=== PATIENT | female | born 1985 | race Caucasian/White ===

== ENCOUNTER → 2020-07-25 16:36 | Outpatient (CLI) | payer BC, SELFPAY ==
[2020-07-25 13:13] VITALS: BMI 22.1
== END ==
PROVIDERS: Referring Provider Nurse Practitioner Women's Health; Visit Provider Nurse Practitioner Women's Health
DX: N76.0 Acute vaginitis (principal)
CPT/HCPCS: 87070; 87205

== ENCOUNTER → 2020-08-02 18:08 | Outpatient (CLI) | payer BC, SELFPAY ==
[2020-08-02 15:38] VITALS: BMI 22.1
[2020-08-06 21:45] LABS: HPV APTIMA, High Risk Negative (Negative)
== END ==
PROVIDERS: Visit Provider Obstetrics & Gynecology
DX: Z12.4 Encounter for screening for malignant neoplasm of cervix (principal)
CPT/HCPCS: 87624; 88175; G0145

== ENCOUNTER → 2020-08-10 09:17 | Outpatient (CLI) | payer BC, SELFPAY ==
[2020-08-02 15:38] VITALS: BMI 22.1
--- NOTE | 2020-08-10 09:21 | BI_ITS ---
MAMMOGRAPHY - BILATERAL DIAGNOSTIC REASON FOR EXAM: Female, 35 years old. Palpable breast nodules. PERTINENT HISTORY: Non-contributory. TECHNIQUE: Digital bilateral breast kieran (3D mammographic acquisition) in the CC and MLO projections. 2-D mediolateral oblique (MLO) and craniocaudad (CC) views of both breasts were obtained. CAD: Full Field Digital Mammography with Computer Added Detection was performed. COMPARISON: Comparison is made with prior outside examination dated 06/05/2016. FINDINGS: Breast Composition: The breasts are extremely dense, which lowers the sensitivity of mammography. Multiple bilateral nodular densities seen in the upper lateral aspects of both breasts. The previously seen nodular densities in the left breast decreased in size. These most likely represent cysts. Correlation with ultrasound is recommended. No other significant abnormalities are identified. BI/DIAG MAMM W/CAD, BILAT IMPRESSION: Bilateral breast nodules as described. Correlation with ultrasound is recommended. ASSESSMENT CATEGORY: BIRADS Category 0: Incomplete. Need additional imaging evaluation. A letter regarding these results will be sent to the patient by the facility within 30 days. Approximately 10% of breast cancers are not detected by mammography. A normal mammogram should not delay biopsy of a clinically suspicious abnormality. Electronically Signed: Jose A Rankin MD at 11:07 EST , Service support ,
--- NOTE | 2020-08-10 09:21 | US_ITS ---
STUDY: ULTRASOUND BREAST - RIGHT REASON FOR EXAM: Female, 35 years old. Palpable lump in the right breast. TECHNIQUE: Axial and longitudinal images of the RIGHT breast were performed with a high resolution ultrasound transducer. # OF IMAGES: 96 COMPARISON: Comparison is made with prior mammogram done earlier this morning. FINDINGS: RIGHT Breast: The upper outer quadrant of the right breast was examined by ultrasound. Multiple cysts are seen. The largest cyst is at the 10 o''clock position of the breast at 8 cm from the nipple. This measures 2.2 cm x 2.1 cm x 1.5 cm. IMPRESSION: Multiple cysts in the upper-outer quadrant of the breast. ASSESSMENT CATEGORY: BIRADS Category 2: Benign. A letter regarding these results will be sent to the patient by the facility within 30 days. Electronically Signed: Jose A Rankin MD at 13:16 EST , Service support , STUDY: ULTRASOUND BREAST - LEFT REASON FOR EXAM: Female, 35 years old. Abnormal screening mammogram. TECHNIQUE: Axial and longitudinal images of the LEFT breast were performed with a high resolution ultrasound transducer. # OF IMAGES: 96 COMPARISON: Comparison is made with prior mammogram done earlier today. FINDINGS: LEFT Breast: Multiple cysts are seen in the upper outer quadrant of the left breast. The largest cyst measures 1.9 cm x 1.7 cm x 0.9 cm. This is at the 2 o''clock position of the breast 5 cm from nipple. There is a 1.1 cm x 0.8 cm x 0.5 cm hypoechoic solid nodule at the 1 o''clock position of the breast at 4 cm from the nipple. A biopsy is recommended. US/Breast Limited Unilateral IMPRESSION: Multiple cysts are seen in the upper outer quadrant of the breast. There is a 1.1 cm x 0.8 cm x 0.5 cm solid nodule at the 1 o''clock position of the breast at 4 cm from nipple. A biopsy is recommended. ASSESSMENT CATEGORY: BIRADS Category 4: Suspicious - Biopsy Should Be Considered. A letter regarding these results will be sent to the patient by the facility within 30 days. Electronically Signed: Jose A Rankin MD at 13:19 EST , Service support ,
== END ==
PROVIDERS: PCP Family Medicine; Referring Provider Obstetrics & Gynecology; Visit Provider Obstetrics & Gynecology
DX: N63.10 Unspecified lump in the right breast, unspecified quadrant (principal)
CPT/HCPCS: 76642; 77062; 77066; G0279

== ENCOUNTER 2020-08-22 18:44 | Observation (INO) | payer BC, SELFPAY ==
[2020-08-14 14:57] VITALS: BMI 21.4
[2020-08-22] VITALS (8 sets, daily range): BP systolic 101–125; BP diastolic 66–88; PULSE 67–114; RESP 16–18; TEMP 36.6–37.2; O2SAT 97–100; BMI 21.4; BMI 20.5; BMI 20.6
--- NOTE | 2020-08-22 | LES_PTH ---
PATIENT: SEBASTIAN BUTLER LOC: MS3 U#:[id number] AGE/SX: 35/F [place] [facility] [place]: Dr. Eugenio Molina MD : 1985 BED: 1 DIS: 08/23/2020 SPEC #: [id number] RECD: 08/22/20 15:00 STATUS: ELLA MALVIN #: [id number] ABRAHAM: 08/22/20 00:[address]: Eugenio Molina DEPT: SURGICAL PATHOLOGY RECD BY: Levon Perez ENTERED: 08/23/20 07:33 SP TYPE: Lesion OTHR DR: Dr. Jatinder Browne, DO Tissues: Skin of breast, NOS Procedures: Surgery Specimen Level IV HEADER OPERATION: Left breast biopsy PRE-OP DIAGNOSIS: Left breast lesion 1 o'clock, 4 cm from nipple TISSUE SUBMITTED: Left breast lesion MICROSCOPIC DIAGNOSIS Left breast lesion, 1 o'clock, 4 cm from nipple, core biopsy: Fibroadenoma with focal fibrocystic changes. Negative for atypia or malignancy. See comment. JOSE GUADALUPE:joseph 08/24/2020 COMMENT Numerous blood clots are also noted in the specimen. Correlation with clinical, radiologic findings and appropriate follow up are necessary. Please also make reference to additional specimen [id number], left breast, evacuation hematoma with diagnosis of fibroadenoma and fibrocystic changes. MICROSCOPIC DESCRIPTION Slides are reviewed. GROSS DESCRIPTION Received in fixative is one container labeled with the patient name and designated left breast. The specimen consists of multiple elongated fragments of lr-yellow fibroadipose tissue mixed with blood clot that in aggregate measure 3 x 2.5 x 0.3 cm. The entire specimen is submitted in one cassette. / JOSE GUADALUPE:joseph 08/23/20 TC:1 CPT: 66437
--- NOTE | 2020-08-22 | MASS_PTH ---
PATIENT: SEBASTIAN BUTLER LOC: MS3 U#:[id number] AGE/SX: 35/F ROOM: [facility] [place] RE08/22/[address]: Dr. Eugenio Molina MD : 1985 BED: 1 DIS: 08/23/2020 SPEC #: [id number] RECD: 08/23/20 07:32 STATUS: ELLA COOMBS #: [id number] ABRAHAM: 08/22/20 00:[address]: Eugenio Molina DEPT: SURGICAL PATHOLOGY RECD BY: Levon Perez ENTERED: 08/23/20 07:44 SP TYPE: Mass OTHR DR: Dr. Jatinder Browne, DO Tissues: Left breast, NOS Procedures: Surgery Specimen Level V HEADER OPERATION: Exploration of left breast, evacuation hematoma PRE-OP DIAGNOSIS: Left breast lump; hematoma of breast TISSUE SUBMITTED: Left breast mass MICROSCOPIC DIAGNOSIS Left breast mass, evacuation hematoma: Fibroadenoma (0.6 cm in greatest dimension). Focal fibrocystic changes. Focal area of hemorrhage, consistent with hematoma. Negative for atypia or malignancy. See comment. JOSE GUADALUPE:joseph 08/24/2020 COMMENT The fibroadenoma is focally present at the resection margin of the specimen. Please make reference to corresponding additional surgical specimen ([id number]) left breast lesion, 1 o'clock, 4 cm from nipple, core biopsy with diagnosis of fibroadenoma with focal fibrocystic changes. MICROSCOPIC DESCRIPTION Slides are reviewed. GROSS DESCRIPTION Received in fixative is one container labeled with the patient's name and designated left breast mass. The specimen consists of a piece of lr soft tissue measuring 2.5 x 2 x 1 cm. The specimen is not oriented. Sections do not reveal a well-defined mass lesion. The specimen is inked, serially sectioned and submitted entirely in one cassette. / JOSE GUADALUPE:joseph 08/23/20 TC:1 CPT: 39600
--- NOTE | 2020-08-22 13:37 | US_ITS ---
STUDY: ULTRASOUND BREAST - LEFT REASON FOR EXAM: Female, 35 years old. Ultrasound guided left breast biopsy. TECHNIQUE: Axial and longitudinal images of the LEFT breast were performed with a high resolution ultrasound transducer. # OF IMAGES: 25 COMPARISON: Comparison is made with prior mammogram dated 08/10/2020. FINDINGS: LEFT Breast: Under direct sonographic guidance, a decision perform core biopsies of the 1.1 cm x 0.8 cm x 0.5 cm hypoechoic nodule at the 1 o''clock position of the breast at 4 sinus and in the pelvis. US/US Breast Biopsy 1st Lesion IMPRESSION: Successful ultrasound-guided left breast biopsy. ASSESSMENT CATEGORY: BIRADS Category 2: Benign. A letter regarding these results will be sent to the patient by the facility within 30 days. Electronically Signed: Jose A Rankin MD at 15:09 EST , Service support ,
--- NOTE | 2020-08-22 14:19 | PCM.OPRPT ---
Problem List (1) Left breast lump Status: Acute Report of Operation Date of Procedure: 08/22/20 Pre-Operative Diagnosis: Left breast mass Post-Operative Diagnosis: Same Surgery/Procedure Performed:: Ultrasound-guided core needle biopsy of left breast mass with clip placement Description of Procedure: Patient was placed in supine position and the left breast was examined with ultrasound. The install and repair technician was able to identify the left breast mass. An area lateral to this was injected with local anesthesia and a small kaushik was made with a scalpel. The mammotome biopsy needle was placed inferior to the mass and several biopsies were performed. There was a small hematoma that began to form. A clip was placed into the mass and then the hematoma was expressed and pressure was held over the biopsy area. A Steri-Strip and bandage were placed over the incision. Pressure was continue to be held and there appeared to be no new formation of hematoma after pressure was released. Patient was advised to call me if there is any further hematoma formation. Otherwise patient tolerated the procedure well and was sent home in stable condition.
--- NOTE | 2020-08-22 17:08 | HP.PCM_ITS ---
Problem List (1) Left breast lump Status: Acute (2) Hematoma of breast following procedure Status: Acute (3) Hematoma of breast Status: Acute History of Present Illness Date of Admission: 08/22/20 The patient is a 35 year old F who had left breast biopsy today under ultrasound. Following the ultrasound the patient went home and then developed a large hematoma in the left breast. She is very painful and reports that it is growing. Past Medical History Medical History: Medical History (Last Reviewed 08/14/20 @ 14:57 by Estella Goss) Abnormal mammogram of left breast R92.8 Cyst of neck Left breast mass N63.20 Allergies No Known Allergies Allergy (Verified 08/14/20 14:59) Home Medications: Ambulatory Orders Medication Instructions Recorded multivitamin with minerals 1 tab PO DAILY 07/25/20 citalopram 20 mg tablet 20 mg PO DAILY #30 tab 08/02/20 norgestimate 0.25 mg-ethinyl 1 tab PO QDAY #84 tab 08/02/20 estradiol 35 mcg tablet Surgical History: Surgical History (Last Reviewed 08/14/20 @ 14:57 by Estella Goss) delivery delivered O82 Smoking Status: Never smoker - *Family History Maternal History Items: No pertinent history Review of Systems Constitutional: Denies: Anorexia, Fever Eyes: Denies: Blurred vision HEENT: Denies: Difficulty Swallowing Cardiovascular: Denies: Chest Pain Respiratory: Denies: Cough Gastrointestinal: Denies: Abdominal Pain, Nausea, Vomiting Genitourinary: Denies: Frequency Gynecological: Reports: - - Left breast pain and swelling following needle biopsy Musculoskeletal: Denies: Joint Tenderness Neurological: Denies: Balance problems Hematologic/ Lymphatic: Denies: Anemia VTE Information - Inpt Only VTE Present on Admission: No VTE Mechan Device Prophylaxis: SCD's Patient Problems: Active and Suspected Problems (Last Reviewed 08/14/20 @ 14:57 by Estella Goss) Left breast lump (Acute) - Physical Exam Vitals/I&O's: Body Mass Index (BMI) 21.4 General: Alert, Oriented x3 Neck: No JVD Lungs: Normal air movement Cardiovascular: Regular rate, Regular Rhythm Abdomen: Soft, Non Tender, Non-Distended Musculoskeletal: - - Enlarged left breast with firmness Assessment/Plan All Active Problems (Last Reviewed 08/14/20 @ 14:57 by Estella Goss) Left breast lump (Acute) Hematoma of breast following procedure (Acute) Hematoma of breast (Acute) Breast lump on right side at 10 o'clock position (Acute) Adjustment disorder (Acute) 35-year-old female with expanding hematoma following core needle biopsy of the left breast 1. The patient has an expanding hematoma of the left breast with tenderness. I recommended taking the patient to the operating room for evacuation of this hematoma. If the BI-RADS 4 lesion is visible I will remove it at the same time and send it for pathology. I discussed this procedure with her in detail. I discussed the risks of further bleeding, infection, positive margins if this is cancerous. The patient understands all the risks and is willing to proceed. Patient will be admitted for observation after surgery. Eugenio Molina MD Pager: [facility] [address] [place] [address], [address] [place] [address] Office:
[2020-08-22] MEDS: Lactated Ringers 1,000 ML 100 ML IV (17:25)
[2020-08-22] MEDS: Bupiv/Epi 0.25% 30 ML Vial (17:26)
[2020-08-22] MEDS: Cefazolin 2 GM in 0.9% Normal Saline 100 ML IV (17:50)
--- NOTE | 2020-08-22 18:41 | PCM.OPRPT ---
Problem List (1) Left breast lump Status: Acute (2) Hematoma of breast following procedure Status: Acute (3) Hematoma of breast Status: Acute Report of Operation Date of Procedure: 08/22/20 Pre-Operative Diagnosis: Left breast hematoma following procedure Post-Operative Diagnosis: Same Surgery/Procedure Performed:: Evacuation of left breast hematoma with removal of left breast mass Specimen's removed: Left breast mass Description of Procedure: Patient was brought back to the operating room and general anesthesia was used. The left breast was prepped and draped in usual sterile fashion. An incision was made in a curvilinear fashion lateral to the nipple. This was deepened to the hematoma cavity. An artery which was bleeding was encountered. It was clipped on both sides. The cavity was irrigated and suctioned dry and all the hematoma that was able to be expressed was removed. The cavity was inspected and there appeared to be a firm area medial to this which was removed using electrocautery. This was sent for pathology and may contain the mass that was biopsied. Local anesthetic was injected to the incision in the skin. After the cavity was irrigated once more Surgicel powder was placed into the cavity and it was closed with interrupted 3-0 Vicryl sutures as well as a running 4-0 Monocryl suture. Bandage was applied and an Sachin wrap was placed as a pressure dressing around the chest. Patient was then awoken and taken to PACU in stable condition. - Admit VTE Documentation VTE Mechan Device Prophylaxis: SCD's
[2020-08-22] MEDS: 0.9% Normal Saline 1,000 ML 60 ML IV (19:33)
[2020-08-22] MEDS: Morphine 2 MG/ML Syringe IV ×2 (20:11→23:50)
[2020-08-22] MEDS: 0.9% Saline Lock 10 ML Syringe IV (23:50)
[2020-08-23] MEDS: Morphine 2 MG/ML Syringe IV ×2 (04:04→07:23)
[2020-08-23] MEDS: 0.9% Saline Lock 10 ML Syringe IV ×2 (04:05→07:24)
[2020-08-23 04:09] VITALS: BP 103/65; PULSE 68; RESP 18; TEMP 36.9; O2SAT 97
--- NOTE | 2020-08-23 07:12 | PCM.DC.BS ---
Discharge Diet: No Restrictions Discharge Activity: May Not Drive - for 2-3 days or while taking narcotic pain meds., May Shower Lifting Restrictions: 10 pounds for 1 week. Call your doctor if your incision/area has: Sudden Increased Bleeding, Increased Pain/ Swelling, Increased Redness, Foul Smelling Discharge, Swelling at the incision site Call your doctor if you observe: Fever of 101 or Higher Suture Line Care: Avoid Pulling/Pushing, Avoid Pinching/Bending Additional Dressing/Incision Instructions:: Change wrapping and dressing as needed. Keep carter wrap snug around chest. Allergies/Adverse Reactions: Allergies No Known Allergies Allergy (Verified 08/14/20 14:59) Medications to take at Discharge multivitamin with minerals 1 tab PO DAILY 07/25/20 citalopram 20 mg tablet 20 mg PO DAILY #30 tab 08/02/20 norgestimate 0.25 mg-ethinyl estradiol 35 mcg tablet 1 tab PO QDAY #84 tab 08/02/20 Amox/Clavulanate Tablet [Augmentin Tablet] 875 mg PO BID 5 Days #10 tab 08/23/20 Oxycodone HCl/Acetaminophen [Percocet 5-325 mg Tablet] 1 - 2 tab PO Q6H PRN PRN 5 Days #30 tablet 08/23/20 The following prescriptions were given: Amox/Clavulanate Tablet [Augmentin Tablet] 875 mg PO BID 5 Days #10 tab Transmission Status: Pending to [facility] Oxycodone HCl/Acetaminophen [Percocet 5-325 mg Tablet] 1 - 2 tab PO Q6H PRN PRN 5 Days #30 tablet PRN Reason: Pain Score 4-10/10 Transmission Status: Sent to [facility] Primary Care Physician: Jatinder Browne DO [Primary Care Provider] - Please Follow Up With: Eugenio Molina MD When: Follow-up on Thursday morning
--- NOTE | 2020-08-23 08:33 | PCM.PN.SRG ---
Patient Problems: Active and Suspected Problems (Last Reviewed 08/14/20 @ 14:57 by Estella Goss) Left breast lump (Acute) Hematoma of breast following procedure (Acute) Hematoma of breast (Acute) Subjective: Patient is doing well this morning reports much less pain. Her pain is well controlled on meds. - Physical Exam Vitals/I&O's: Vital Signs Temp Pulse Resp BP Pulse Ox 98.4 F 68 18 103/65 97 08/23/20 04:09 08/23/20 04:09 08/23/20 04:09 08/23/20 04:09 08/23/20 04:09 Oxygen Delivery Method Room Air Weight: 120 lb Body Mass Index (BMI) 20.5 Intake and Output for Last 24 Hours 08/21/20 08/22/20 08/23/20 23:59 23:59 23:59 Intake Total 1110 / 1530 740 / 740 Balance 1110 / 1530 740 / 740 General: Alert, Oriented x3 Neck: No JVD Lungs: Normal air movement Abdomen: Soft, Non Tender, Non-Distended Musculoskeletal: - - The patient's left breast appears much softer and less firm than yesterday. There is some old blood draining from the incision but no bright red bleeding or firmness. Current Medications Acetaminophen (Acetaminophen 325 Mg Tablet) 650 mg PO Q4H PRN PRN PRN Reason: PAIN 1-10 / FEVER Amoxicillin/Clavulanate Potassium (Amox/Clavulanate 875 Mg Tablet) 875 mg PO BIDCM [facility] Citalopram Hydrobromide (Citalopram 20 Mg Tablet) 20 mg PO DAILY [facility] Sodium Chloride () 1,000 mls @ 60 mls/hr IV .[id number] [facility] Last Admin: 08/22/20 19:33 Dose: 60 mls/hr Documented by: Morphine Sulfate (Morphine 2 Mg/Ml Syringe) 2 - 4 mg IV Q2H PRN PRN PRN Reason: Pain Score 4-10 Last Admin: 08/23/20 07:23 Dose: 2 mg Documented by: Morphine Sulfate (Morphine 4 Mg/Ml Syringe) 2 - 4 mg IV Q2H PRN PRN PRN Reason: Pain Score 4-10 Ondansetron HCl (Ondansetron 4 Mg/2 Ml Vial) 4 mg IV Q6H PRN PRN PRN Reason: NAUSEA Oxycodone HCl (Oxycodone 5 Mg Tablet) 5 - 10 mg PO Q4H PRN PRN PRN Reason: Pain Score 4-10 Sodium Chloride (0.9% Saline Lock 10 Ml Syringe) 10 - 40 ml IV UD PRN PRN Reason: SALINE FLUSH Last Admin: 08/23/20 07:24 Dose: 10 ml Documented by: Medical Necessity - Tobacco Use Smoking Status: Former smoker Tobacco Use: Cigarettes Assessment/Plan All Active Problems (Last Reviewed 08/14/20 @ 14:57 by Estella Goss) Left breast lump (Acute) Hematoma of breast following procedure (Acute) Hematoma of breast (Acute) Breast lump on right side at 10 o'clock position (Acute) Adjustment disorder (Acute) 35-year-old female status post evacuation of hematoma from left breast biopsy 1. Patient is doing much better this morning and her breast appears softer. I change the dressing and there was some old blood that was draining from the incision but no new bleeding. The breast is mildly ecchymotic. The patient was rewrapped in an Sachin bandage and given instructions. I did start her on prophylactic antibiotics due to the hematoma and I will discharge her home with pain medication and she will follow-up on Thursday. Eugenio Molina MD Pager: [facility] [address] [place] [address], [address] [place] [phone] Office:
[2020-08-23 08:50] VITALS: BP 107/51; PULSE 68; RESP 14; TEMP 36.8; O2SAT 98
[2020-08-23] MEDS: Amox/Clavulanate 875 MG Tablet PO (09:07)
[2020-08-23] MEDS: Citalopram 20 MG Tablet PO (09:07)
[2020-08-23 09:59] VITALS: PULSE 68; RESP 14; O2SAT 98
[2020-08-23] MEDS: oxyCODONE 5 MG Tablet PO (10:22)
[2020-08-23] MEDS: Acetaminophen 325 MG Tablet 650 MG PO (10:23)
--- NOTE | 2020-08-23 11:55 | PHA.DC.MC ---
Pharmacy Service has performed discharge medication reconciliation and counseling for this patient. The patient was counseled on the following discharge medications and changes in medications for homegoing were reviewed. 1. AUGMENTIN --> REVIEWED INTERACTION W/ CONTROL. COUNSELLED ON ALTERNATIVE CONTRACEPTIVE METHODS WHILE ON ABX AND FOR 1 WEEK AFTER COMPLETION OF AUGMENTIN. 2. PERCOCET The Reason for Use, instructions for use, and potential side effects were reviewed for all new medications. The patient's questions regarding all of their medications were answered. The patient was able to verbally demonstrate an understanding of their discharge medications. Home Medications multivitamin with minerals 1 tab PO DAILY 07/25/20 citalopram 20 mg tablet 20 mg PO DAILY #30 tab 08/02/20 norgestimate 0.25 mg-ethinyl estradiol 35 mcg tablet 1 tab PO QDAY #84 tab 08/02/20 Amox/Clavulanate Tablet [Augmentin Tablet] 875 mg PO BID 5 Days #10 tab 08/23/20 Oxycodone HCl/Acetaminophen [Percocet 5-325 mg Tablet] 1 - 2 tab PO Q6H PRN PRN 5 Days #30 tab 08/23/20
[2020-08-23 12:40] VITALS: BP 108/73; PULSE 66; RESP 16; TEMP 36.8; O2SAT 98
--- NOTE | 2020-08-23 17:17 | NURSING ---
Late entry: Nursing documentation reviewed.
== END 2020-08-23 13:15 | disposition home or self-care (01) ==
LOC: MS3 08-23 07:09
PROVIDERS: Admitting Provider Surgery; PCP Family Medicine; Referring Provider Surgery; Visit Provider Surgery
PROC: (CPT 10140; principal; 2020-08-22 17:00)
DX: D24.2 Benign neoplasm of left breast (principal); N64.89 Other specified disorders of breast; R92.8 Other abnormal and inconclusive findings on diagnostic imaging of breast; F43.20 Adjustment disorder, unspecified; Z79.899 Other long term (current) drug therapy; Z87.891 Personal history of nicotine dependence
CPT/HCPCS: 00400; 10140; 19120; 19083; 88305; 88307; 96374; 96376; 99218; J7030; J7120; A4216; G0378; G0379; J2405

== ENCOUNTER 2020-08-30 10:44 | Day surgery (SDC) | payer BC, SELFPAY ==
[2020-08-22 20:38] VITALS: BMI 20.5
[2020-08-30] VITALS (9 sets, daily range): BP systolic 94–109; BP diastolic 59–69; PULSE 66–74; RESP 14–16; TEMP 36–36.8; O2SAT 98–99; BMI 21.2
[2020-08-30 11:14] LABS: Internal QC Validated? YES +Cl - CLEAR BKGD; Pregnancy, Urine Negative Negative
[2020-08-30] MEDS: Lactated Ringers 1,000 ML 100 ML IV (11:30)
--- NOTE | 2020-08-30 11:48 | HP.PCM_ITS ---
Problem List (1) Hematoma of breast following procedure Status: Acute History of Present Illness Date of Admission: 08/30/20 The patient is a 35 year old F who had evacuation of breast hematoma last Thursday. The patient reports that she was doing well over the weekend and it reaccumulated on Thursday. She was seen in the office on Thursday and again on Thursday and there is no improvement. She still says she is in significant discomfort and would like this removed. Past Medical History Past Medical History (Chronic Problems): Chronic Problems (Last Updated 08/29/20 @ 14:[address] Eugenio Molina MD) Left breast lump (Chronic) Medical History: Medical History (Last Updated 08/29/20 @ 14:[address] Eugenio Molina MD) Left breast lump (Chronic) N63.20 Abnormal mammogram of left breast R92.8 Cyst of neck Left breast mass N63.20 Allergies No Known Allergies Allergy (Verified 08/29/20 16:12) Home Medications: Ambulatory Orders Medication Instructions Recorded multivitamin with minerals 1 tab PO DAILY 07/25/20 citalopram 20 mg tablet 20 mg PO DAILY #30 tab 08/02/20 norgestimate 0.25 mg-ethinyl 1 tab PO QDAY #84 tab 08/02/20 estradiol 35 mcg tablet fluconazole 150 mg tablet 150 mg PO .COMPLEX #2 tab 08/28/20 Oxycodone HCl/Acetaminophen 1 ea PO PRN PRN 08/29/20 [Oxycodone-Acetaminophen 5-325] Surgical History: Surgical History (Last Updated 08/29/20 @ 13:55 by Mariela Membreno) History of evacuation of hematoma Onset Date: ~07/2020 Z98.890 History of left breast biopsy Onset Date: ~07/2020 Z98.890 delivery delivered O82 Smoking Status: Current every day smoker Tobacco Use: Cigarettes - *Family History Maternal History Items: No pertinent history Review of Systems Constitutional: Denies: Anorexia, Fever HEENT: Denies: Difficulty Swallowing Cardiovascular: Reports: - - Left breast pain Respiratory: Denies: Cough Gastrointestinal: Denies: Abdominal Pain, Hematochezia, Nausea, Melena Genitourinary: Denies: Dysuria Musculoskeletal: Denies: Joint Tenderness Skin: Denies: Jaundice VTE Information - Inpt Only VTE Present on Admission: No VTE Mechan Device Prophylaxis: SCD's - Physical Exam Vitals/I&O's: Vital Signs Temp Pulse Resp BP Pulse Ox 97.8 F 66 14 103/63 98 08/30/20 11:10 08/30/20 11:10 08/30/20 11:10 08/30/20 11:10 08/30/20 11:10 Oxygen Delivery Method Room Air Weight: 123 lb 7.342 oz Body Mass Index (BMI) 21.2 General: Alert, Oriented x3 Neck: Supple, No JVD Lungs: Normal air movement Cardiovascular: Regular rate, Regular Rhythm Abdomen: Soft, Non Tender, Non-Distended Laboratory Results 08/30/20 11:05: Urine Test Negative Current Medications Lactated Ringer's () 1,000 mls @ 100 mls/hr IV .Q10H RAE Last Admin: 08/30/20 11:30 Dose: 100 mls/hr Documented by: Assessment/Plan All Active Problems (Last Updated 08/29/20 @ 14:[address] Eugenio Molina MD) Hematoma of breast following procedure (Acute) Adjustment disorder (Acute) Breast lump on right side at 10 o'clock position (Resolved) The patient has ongoing hematoma in the left breast. It is warm to the touch but I am unable to assess for erythema. It is tender and swollen. I believe she has reaccumulation of hematoma in the left breast. I did offer the patient continued observation versus evacuation of hematoma the patient would like evacuated she is very uncomfortable. I will take the patient tomorrow for OR evacuation of hematoma. I discussed the risks of bleeding and infection and the patient understands and is willing to proceed. Eugenio Molina MD Pager: [facility] [address] [place] [address], [address] [place] [address] Office:
[2020-08-30] MEDS: Cefazolin 2 GM in 0.9% Normal Saline 100 ML IV (13:05)
[2020-08-30] MEDS: Lidocaine 1% /Epi 1:100 (20ml) 20 ML Vial (13:28)
--- NOTE | 2020-08-30 13:38 | PCM.OPRPT ---
Problem List (1) Hematoma of breast following procedure Status: Acute Report of Operation Date of Procedure: 08/30/20 Pre-Operative Diagnosis: Postoperative hematoma Post-Operative Diagnosis: Postoperative seroma with inflammation Surgery/Procedure Performed:: Postoperative seroma evacuation Description of Procedure: Patient was brought back to the operating room and MAC anesthesia was induced. The left breast was prepped and draped in usual sterile fashion. The prior incision was injected with local anesthetic. The prior incision was excised sharply. The seroma cavity was entered and the seroma was suctioned. The fluid was clear and there was no ongoing bleeding. The cavity appeared dry with no oozing or hematoma. The breast was explored and there were no other hematoma pockets. There was inflamed breast tissue laterally and inferiorly but there was no sign of ongoing bleeding or fluid collection. The incision was injected once more with local anesthetic and closed with interrupted 3-0 Vicryl sutures as well as running 4-0 Monocryl suture. It was left loosely sutured and allowed to drain if needed. - Admit VTE Documentation VTE Mechan Device Prophylaxis: SCD's
--- NOTE | 2020-08-30 13:42 | DCINST_ITS ---
Discharge Diet: No Restrictions Discharge Activity: May Not Drive - while on narcotic pain medications, May Shower May shower in (days): 1 Lifting Restrictions: 10 pounds for 1 week. Call your doctor if your incision/area has: Continuous Slow Oozing, Sudden Incr eased Bleeding, Increased Pain/ Swelling, Increased Redness, Foul Smelling Discharge, Swelling at the incision site Call your doctor if you observe: Fever of 101 or Higher Suture Line Care: Avoid Pulling/Pushing, Avoid Pinching/Bending Remove Dressing in (days):: 1 - Remove bulky dressing tomorrow. May leave any opsite dressing for 3-4 days. Keep dressing in place until your follow-up appointment. Cleanse incision/area with: Soap & Water Additional Dressing/Incision Instructions:: Wear a tight supportive athletic bra. Allergies/Adverse Reactions: Allergies No Known Allergies Allergy (Verified 08/29/20 16:12) Medications to take at Discharge multivitamin with minerals 1 tab PO DAILY 07/25/20 citalopram 20 mg tablet 20 mg PO DAILY #30 tab 08/02/20 norgestimate 0.25 mg-ethinyl estradiol 35 mcg tablet 1 tab PO QDAY #84 tab 08/02/20 fluconazole 150 mg tablet 150 mg PO .COMPLEX #2 tab 08/28/20 Oxycodone HCl/Acetaminophen [Oxycodone-Acetaminophen 5-325] 1 ea PO PRN PRN 08/29/20 Oxycodone HCl/Acetaminophen [Percocet 5-325 mg Tablet] 1 - 2 tab PO Q6H PRN PRN 5 Days #40 tablet 08/30/20 The following prescriptions were given: Oxycodone HCl/Acetaminophen [Percocet 5-325 mg Tablet] 1 - 2 tab PO Q6H PRN PRN 5 Days #40 tablet PRN Reason: Pain Score 4-10/10 Transmission Status: Sent to [facility] Primary Care Physician: Jatinder Browne DO [Primary Care Provider] - Please Follow Up With: Eugenio Molina MD When: Please call to schedule 1 week follow up appointment. [phone]
== END 2020-08-30 15:18 | disposition home or self-care (01) ==
LOC: SDC 10:46 → AC 10:46
PROVIDERS: Anesthesiology; PCP Family Medicine; Referring Provider Surgery; Visit Provider Surgery
PROC: (CPT 21501; principal; 2020-08-30 12:45)
DX: M96.843 Postprocedural seroma of a musculoskeletal structure following other procedure (principal); Y83.8 Other surgical procedures as the cause of abnormal reaction of the patient, or of later complication, without mention of misadventure at the time of the procedure; F17.210 Nicotine dependence, cigarettes, uncomplicated; J45.909 Unspecified asthma, uncomplicated; Z79.899 Other long term (current) drug therapy; F43.20 Adjustment disorder, unspecified; F41.9 Anxiety disorder, unspecified; F32.9 Major depressive disorder, single episode, unspecified
CPT/HCPCS: 21501; 81025; J7120

== ENCOUNTER → 2020-11-09 10:53 | Outpatient (CLI) | payer BC, SELFPAY ==
[2020-10-31 13:58] VITALS: BMI 21.2
--- NOTE | 2020-11-09 10:54 | US_ITS ---
STUDY: ULTRASOUND BREAST - RIGHT REASON FOR EXAM: Female, 35 years old. Palpable lump in the right breast. TECHNIQUE: Axial and longitudinal images of the RIGHT breast were performed with a high resolution ultrasound transducer. # OF IMAGES: 20 COMPARISON: Comparison is made with prior mammogram dated 08/10/2020 and prior sonogram of the right breast dated 08/10/2020. FINDINGS: RIGHT Breast: Multiple cysts of the right breast were visualized. The largest cyst measures 2.4 cm x 2 cm x 1.5 cm. This is at the 10 o''clock position of the breast at 8 cm from nipple. US/Breast Limited Unilateral IMPRESSION: The palpable abnormality corresponds to a dominant 2.4 cm x 2 cm x 1.5 cm cyst at the 10 o''clock position of the breast at 8 cm from the nipple. ASSESSMENT CATEGORY: BIRADS Category 2: Benign. A letter regarding these results will be sent to the patient by the facility within 30 days. Electronically Signed: Jose A Rankin MD at 12:42 EDT , Service support ,
== END ==
PROVIDERS: PCP Family Medicine; Referring Provider Nurse Practitioner Women's Health; Visit Provider Nurse Practitioner Women's Health
DX: N63.10 Unspecified lump in the right breast, unspecified quadrant (principal)
CPT/HCPCS: 76642

== ENCOUNTER → 2021-02-27 10:50 | Outpatient (CLI) | payer BC, SELFPAY ==
--- NOTE | 2021-02-27 10:52 | US_ITS ---
STUDY: ULTRASOUND BREAST - LEFT REASON FOR EXAM: Female, 35 years old. Follow-up biopsy TECHNIQUE: Axial and longitudinal images of the LEFT breast were performed with a high resolution ultrasound transducer. # OF IMAGES: 18 COMPARISON: 08/22/2020 FINDINGS: LEFT Breast: Heterogeneous background echotexture. At 1 o''clock, 4 cm from nipple, no residual mass is identified which was biopsied earlier.: US/Breast Limited Unilateral IMPRESSION: No residual recurrent biopsied mass. ASSESSMENT CATEGORY: BIRADS Category 1: Negative. A letter regarding these results will be sent to the patient by the facility within 30 days. Electronically Signed: Evan Neumann MD at 11:36 EDT Tel , Service support ,
== END ==
PROVIDERS: PCP Family Medicine; Visit Provider Surgery
DX: N63.20 Unspecified lump in the left breast, unspecified quadrant (principal)
CPT/HCPCS: 76642

== ENCOUNTER → 2022-05-27 | Outpatient (CLI) | payer OTHER, SELFPAY ==
[2022-05-29 22:06] LABS: Chlamydia By Nucleic Acid AMP Negative (Negative)
[2022-05-29 22:25] LABS: Gonococcus By Nucleic Acid AMP Negative (Negative)
== END | disposition home or self-care (01) ==
LOC: LABSPEC 16:59
PROVIDERS: PCP Family Medicine; Visit Provider Nurse Practitioner Women's Health
DX: N89.8 Other specified noninflammatory disorders of vagina (principal)
CPT/HCPCS: 87070; 87077; 87205; 87491; 87591

== ENCOUNTER → 2024-09-02 | Outpatient (CLI) | payer OTHER, SELFPAY ==
--- NOTE | 2024-09-02 11:00 | BI_ITS ---
PROCEDURE: SCRN MAMM (CAD)W/MARIO ALBERTO BILAT REASON FOR EXAM: F, Age 39 y/o, history of prior left excisional breast biopsy. History of bilateral breast cysts. TECHNIQUE: Bilateral screening digital breast tomosynthesis with 2D and 3D images. Computer aided detection. COMPARISON: Prior exam(s) dating back to outside examination dated August 10, 2020.. FINDINGS: The breasts are heterogeneously dense which may obscure small masses. The patient is status post lumpectomy in the upper lateral aspect of the left breast. There is evidence of well-defined nodular densities in both upper outer quadrants of the breasts suggestive of known cysts. Correlation with ultrasound recommended. BI/SCRN MAMM (CAD)W/MARIO ALBERTO BILAT IMPRESSION: BI-RADS 0: INCOMPLETE - NEED ADDITIONAL IMAGING EVALUATION. Follow-up code: Sonographic correlation recommended of both breasts. The patient will be notified of the results by letter. Reading Location: [id number]
== END | disposition home or self-care (01) ==
LOC: OPBI 11:04
PROVIDERS: PCP Family Medicine; Referring Provider Obstetrics & Gynecology; Visit Provider Obstetrics & Gynecology
DX: Z12.31 Encounter for screening mammogram for malignant neoplasm of breast (principal)
CPT/HCPCS: 77063; 77067

== ENCOUNTER → 2024-09-06 | Outpatient (CLI) | payer OTHER, SELFPAY ==
--- NOTE | 2024-09-06 12:49 | US_ITS ---
PROCEDURE: BREAST LIMITED UNILATERAL REASON FOR EXAM: ABNORMAL MAMMOGRAM 39-year-old female presents for follow-up of the bilateral breast findings seen on the screening mammogram of 09/02/2024. No family history of breast cancer. COMPARISON: Mammogram 09/02/2024 and ultrasound 02/27/2021 TECHNIQUE: Targeted bilateral breast ultrasound. FINDINGS: RIGHT: Ultrasound targeted to the upper-outer at the right breast. There are numerous cysts in the upper-outer right quadrant, the special service representative cyst is at 9 o'clock 6 cm from the nipple measuring 2.3 x 2.1 x 1.4 cm. Otherwise, there are no suspicious sonographic findings. LEFT: Ultrasound targeted to the upper-outer at the left breast. There are numerous cyst in the upper-outer left quadrant, the special service representative cyst is at 3 o'clock 9 cm from the nipple measuring 1.4 x 1.1 x 0.7 cm. There is another cyst at 2 o'clock 6 cm from the nipple measuring 1.1 x 1.1 x 0.7 cm. Otherwise, there are no suspicious sonographic findings. US/Breast Limited Unilateral IMPRESSION: Multiple bilateral breast cysts are benign. There is no evidence of malignancy. BI-RADS 2: BENIGN. RECOMMEND ANNUAL MAMMOGRAPHIC SCREENING. Reading Location: [id number]
--- NOTE | 2024-09-06 12:49 | US_ITS ---
PROCEDURE: BREAST LIMITED UNILATERAL REASON FOR EXAM: ABNORMAL MAMMOGRAM 39-year-old female presents for follow-up of the bilateral breast findings seen on the screening mammogram of 09/02/2024. No family history of breast cancer. COMPARISON: Mammogram 09/02/2024 and ultrasound 02/27/2021 TECHNIQUE: Targeted bilateral breast ultrasound. FINDINGS: RIGHT: Ultrasound targeted to the upper-outer at the right breast. There are numerous cysts in the upper-outer right quadrant, the telephone services sales representative cyst is at 9 o'clock 6 cm from the nipple measuring 2.3 x 2.1 x 1.4 cm. Otherwise, there are no suspicious sonographic findings. LEFT: Ultrasound targeted to the upper-outer at the left breast. There are numerous cyst in the upper-outer left quadrant, the telephone services sales representative cyst is at 3 o'clock 9 cm from the nipple measuring 1.4 x 1.1 x 0.7 cm. There is another cyst at 2 o'clock 6 cm from the nipple measuring 1.1 x 1.1 x 0.7 cm. Otherwise, there are no suspicious sonographic findings. US/Breast Limited Unilateral IMPRESSION: Multiple bilateral breast cysts are benign. There is no evidence of malignancy. BI-RADS 2: BENIGN. RECOMMEND ANNUAL MAMMOGRAPHIC SCREENING. Reading Location: [id number]
== END | disposition home or self-care (01) ==
PROVIDERS: PCP Family Medicine; Referring Provider Obstetrics & Gynecology; Visit Provider Obstetrics & Gynecology
DX: R92.8 Other abnormal and inconclusive findings on diagnostic imaging of breast (principal); N64.4 Mastodynia
CPT/HCPCS: 76642

== ENCOUNTER → 2024-12-20 | Outpatient (CLI) | payer OTHER, SELFPAY ==
--- NOTE | 2024-12-20 18:00 | US_ITS ---
PROCEDURE: PELVIC W/ TRANSVAGINAL REASON FOR EXAM: AUB Right-sided pelvic pain. TECHNIQUE: PELVIC W/ TRANSVAGINAL COMPARISON: None FINDINGS: LMP: November 26, 2024. Measurements: Uterus: 10.8 cm x 4.5 cm x 4.1 cm with a volume of 104.6 mL Endometrial Thickness: 7 mm. It is hyperechoic. Right Ovary: 5.4 cm x 3.6 cm x 2.8 cm with a volume of 33.2 mL. Left Ovary: 2.4 cm x 1.5 cm x 1.4 cm with a volume of 5.07 mL. TRANSABDOMINAL: Uterus: Normal size, myometrial echotexture, and contour. Endometrium: Unremarkable. Right ovary: There is a 3.3 cm x 3 cm x 2.8 cm cyst in the right ovary. There is also evidence of a 1.8 cm 2.2 cm x 1.9 cm solid nodule. This may represent possible dermoid. Left ovary: Normal size and echotexture. Other: No large pelvic mass identified. Transvaginal sonography was performed as transabdominal imaging did not explain the patient's presenting symptoms. TRANSVAGINAL: Uterus: Anteverted. Endometrium: Normal echotexture. Right ovary: 3.3 cm x 3 cm 2.8 cm right ovarian cyst. There is also evidence of a 1.8 cm 2.2 cm 1.9 cm hypoechoic nodule. Follow-up recommended. Left ovary: Normal size and echotexture. Other adnexal findings: None. Cul-de-sac: No free intraperitoneal fluid identified. Tenderness: No tenderness US/Pelvic w/ Transvaginal IMPRESSION: Right ovarian cyst as well as a small hypoechoic solid nodule. Follow-up recom mended. Reading Location: [id number]
== END | disposition home or self-care (01) ==
LOC: OPUS 17:59
PROVIDERS: PCP Family Medicine; Referring Provider Obstetrics & Gynecology; Visit Provider Obstetrics & Gynecology
DX: N93.9 Abnormal uterine and vaginal bleeding, unspecified (principal)
CPT/HCPCS: 76830; 76856

== ENCOUNTER → 2025-02-16 | Outpatient (CLI) | payer OTHER, SELFPAY ==
--- NOTE | 2025-02-16 12:48 | US_ITS ---
PROCEDURE: PELVIC W/ TRANSVAGINAL REASON FOR EXAM: OVARIAN CYST TECHNIQUE: PELVIC W/ TRANSVAGINAL COMPARISON: Prior study dated December 20, 2024. FINDINGS: Measurements: Uterus: 10.2 cm x 4.8 cm x 4.7 cm with a volume of 120.46 mL Endometrial Thickness: 3.9 mm Right Ovary: 3 cm x 5.4 cm x 3.5 cm with a volume of 29.49 mL. Left Ovary: 3.2 cm x 1.4 cm x 1.4 cm with a volume of 3.2 cm mL. TRANSABDOMINAL: Uterus: Normal size, myometrial echotexture, and contour. Endometrium: Unremarkable. Right ovary: There is a 2.6 cm x 2.8 cm x 2.2 cm right ovarian cyst. Once again, there is a 1.7 cm x 1.6 cm 1.8 cm hyperechoic area most likely representing fat. This is unchanged. Left ovary: Normal size and echotexture. Other: No large pelvic mass identified. Transvaginal sonography was performed to better visualize the endometrium. TRANSVAGINAL: Uterus: Anteverted. Normal contour and myometrial echotexture. Endometrium: Homogeneously thickened. Right ovary: 2.6 cm x 2.8 cm 2.2 cm right ovarian cyst. Stable 1.7 cm x 1.6 cm 1.8 cm hyperechoic area. This is unchanged. Left ovary: Normal size and echotexture. Other adnexal findings: None. Cul-de-sac: No free intraperitoneal fluid identified. Tenderness: No tenderness US/Pelvic w/ Transvaginal IMPRESSION: Stable examination. Reading Location: [id number]
== END | disposition home or self-care (01) ==
PROVIDERS: PCP Family Medicine; Referring Provider Obstetrics & Gynecology; Visit Provider Obstetrics & Gynecology
DX: N83.201 Unspecified ovarian cyst, right side (principal)
CPT/HCPCS: 76830; 76856